=== PATIENT | female | born 1950 | race Caucasian/White ===

== ENCOUNTER 2022-10-25 08:00 | Outpatient (CLI) | payer MEDICARE ==
--- NOTE | 2022-10-26 08:35 | XRAY Report ---
PROCEDURE: Elbow 3 View LT INDICATIONS: LEFT ELBOW PAIN TECHNIQUE: 4 views of the elbow were acquired. COMPARISON: None. FINDINGS: Bones: No acute fractures or dislocations. No suspicious bony lesions. Extensive postsurgical thompson es with ORIF of distal humeral fracture, proximal ulnar fracture and radial head fracture. 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 Soft tissues: No effusion. No suspicious soft tissue calcifications or masses. IMPRESSION: 1. Ynutsomw-zq-[id number] osteoarthritis. 2. Postsurgical changes. Reviewed by: Radha Castillo MD on 10/26/2022 8:34 AM PDT Approved by: Radha Castillo MD on 10/26/2022 8:34 AM PDT Station ID: [id number]
== END 2022-10-25 23:59 | disposition home or self-care (01) ==
LOC: DI.S 08:00
PROVIDERS: ATTEND Physician Assistant Medical
DX: M19.022 Primary osteoarthritis, left elbow (principal)

== ENCOUNTER 2023-05-10 08:00 | Outpatient (CLI) | payer MEDICARE ==
--- NOTE | 2023-05-10 10:47 | XRAY Report ---
PROCEDURE: Chest 2 View X-Ray INDICATIONS: UPPER RESPIRATORY INFECTION TECHNIQUE: 2 views of the chest were acquired. COMPARISON: None. FINDINGS: Surgical changes and devices: None. Lungs and pleura: Near complete white out of the right lower lobe with large 6.6 bleb projecting ove r the left upper lobe. No pneumothorax. Mediastinum: Mediastinal contours appear normal. Heart size is normal. Bones and chest wall: No suspicious bony lesions. Overlying soft tissues appear unremarkable. Wed ge compression of the lower thoracic spine with bone cement suggestive prior treatment. IMPRESSION: Near complete whiteout of the right lower lobe likely reflects effusion. Lucency in the left upper lobe may represent large pulmonic cyst versus blood and less likely a cavit roly lesion. Given the differential for near complete whiteout of the lung consider CT imaging. Reviewed by: Damien Parmar MD on 05/10/2023 9:45 AM [facility] Approved by: Damien Parmar MD on 05/10/2023 9:45 AM [facility] Station ID: [id number]
== END 2023-05-10 23:59 | disposition home or self-care (01) ==
LOC: DI.S 08:00
PROVIDERS: ATTEND Physician Assistant
DX: J06.9 Acute upper respiratory infection, unspecified (principal); R91.8 Other nonspecific abnormal finding of lung field

== ENCOUNTER 2023-05-23 09:17 | Outpatient (CLI) | payer MEDICARE ==
--- NOTE | 2023-05-23 11:13 | XRAY Report ---
PROCEDURE: Chest 2 View X-Ray INDICATIONS: PLEURAL EFFUSION TECHNIQUE: 2 views of the chest were acquired. COMPARISON: Chest x-ray 05/10/2023. FINDINGS: Surgical changes and devices: None. Lungs and pleura: Significantly decreased size of right pleural effusion. Small residual right pleur al fluid. Mild right basilar opacity, may represent atelectasis. Redemonstration of right upper lung lucency. Mediastinum: Mediastinal contours appear normal. Heart size is normal. Bones and chest wall: No suspicious bony lesions. Overlying soft tissues appear unremarkable. IMPRESSION: 1.Significant decreased size of right pleural effusion with trace residual fluid. Right basilar opaci ty may represent atelectasis or consolidation. 2.Redemonstration right upper lobe lucency measuring approximately 7 cm, may represent pulmonic cysts . CT scan can be obtained for further evaluation. Reviewed by: Rinku Driscoll MD on 05/23/2023 11:12 AM PST Approved by: Rinku Driscoll MD on 05/23/2023 11:12 AM PST Station ID: [id number]
== END 2023-05-23 09:18 | disposition home or self-care (01) ==
LOC: DI.S 09:17
DX: J90 Pleural effusion, not elsewhere classified (principal); Z98.890 Other specified postprocedural states; R91.8 Other nonspecific abnormal finding of lung field

== ENCOUNTER 2023-06-18 17:41 | Outpatient (CLI) | payer MEDICARE | END 2023-06-18 17:42 | disposition short-term general hospital (02) | LOC: EMS 17:41 | DX: R07.9 Chest pain, unspecified (principal); R11.2 Nausea with vomiting, unspecified; R19.7 Diarrhea, unspecified; R42 Dizziness and giddiness; R53.1 Weakness | CPT/HCPCS: A0425; A0427 ==

== ENCOUNTER 2023-07-12 12:08 | Outpatient (CLI) | payer MEDICARE | END 2023-07-12 12:09 | disposition critical access hospital (66) | LOC: EMS 12:08 | DX: R07.89 Other chest pain (principal); R10.10 Upper abdominal pain, unspecified; R11.2 Nausea with vomiting, unspecified | CPT/HCPCS: A0425; A0427 ==

== ENCOUNTER 2023-07-12 12:38 | Emergency (ER) | payer MEDICARE ==
[2023-07-12 12:55] VITALS: O2SAT 98
[2023-07-12] MEDS: fentaNYL 100 MCG/2 ML VIAL IVP STA ×2 (13:01→15:11)
[2023-07-12] MEDS: ONDANSETRON 4 MG/2 ML VIAL IVP STA (13:01)
[2023-07-12] MEDS: SODIUM CHLORIDE 0.9% 1,000 ML IV STA ×2 (13:02→14:54)
[2023-07-12 13:04] LABS: BASOPHILS % (AUTO) 0.1 %; HCT - HEMATOCRIT 44.2 % (37.0-47.0); HGB - HEMOGLOBIN 13.4 g/dL (12.0-16.0); LYMPHOCYTES % (AUTO) 10.3 %; MEAN CORPUSCULAR HEMOGLOBIN 23.3 pg (27.0-31.0); MEAN CORPUSCULAR HGB CONC 30.3 g/dL (32.0-36.0); MEAN PLATELET VOLUME 8.8 fL (7.9-10.8); MONOCYTES # (AUTO) 0.5 10^3/uL (0.0-1.0); MONOCYTES % (AUTO) 5.3 %; NEUTROPHILS % (AUTO) 84.1 %; PLT - PLATELET COUNT 347 10^3/uL (130-450); RED BLOOD COUNT 5.74 10^6/uL (4.20-5.40); WHITE BLOOD COUNT 9.5 x10^3/uL (4.8-10.8)
[2023-07-12 13:20] LABS: ALBUMIN 4.4 g/dL (3.2-5.5); ALBUMIN/GLOBULIN RATIO 1.3 (1.0-2.2); ALKALINE PHOSPHATASE 52 IU/L (42-121); ALT ALANINE AMINOTRANSFERASE 25 IU/L (10-60); AST ASPARTATE AMINOTRANSFERASE 17 IU/L (10-42); BILIRUBIN,TOTAL 0.5 mg/dL (0.2-1.0); BUN - BLOOD UREA NITROGEN 36 mg/dL (6-20); CALCIUM 10.6 mg/dL (8.5-10.3); CARBON DIOXIDE - CO2 25 mmol/L (21-32); CHLORIDE 104 mmol/L (101-111); CREATININE 0.6 mg/dL (0.6-1.3); GFR - MDRD 98 (>89); GLUCOSE 168 mg/dL (74-104); LIPASE < 10 U/L (11-82); POTASSIUM 3.9 mmol/L (3.5-4.5); SODIUM 137 mmol/L (135-145); TOTAL PROTEIN 7.7 g/dL (6.4-8.9)
[2023-07-12] MEDS ORDERED: iohexoL-300 100 ML VIAL ONE (13:22)
--- NOTE | 2023-07-12 13:58 | ED Physician Documentation ---
History of Present Illness - Stated complaint Stated Complaint: N/V - Chief complaint Chief Complaint: Abd Pain - History obtained from History obtained from: Patient, EMS - History of Present Illness Timing: Yesterday Pain level max: 7 Pain level now: 7 - Additonal information Additional information: 72-year-old female presents to the emergency department with nausea and vomiting since yesterday. History of hiatal hernia repair in April 2023 at [facility]. She states that she is concerned that she may have of damaged the surgical repair or potentially perforated her esophagus. She is having some chest discomfort, states she mainly feels sore from vomiting. No fevers. No chills. No diarrhea. No constipation. No changes to her medications. No recent travel or antibiotics. Review of Systems Constitutional: denies: Chills GI: reports: Nausea, Vomiting. denies: Hematemesis, Bloody / black stool : denies: Dysuria Skin: denies: Rash Musculoskeletal: denies: Neck pain, Back pain Neurologic: denies: Headache PD PAST MEDICAL HISTORY - Past Medical History Past Medical History: Yes Cardiovascular: None Respiratory: None Neuro: None Endocrine/Autoimmune: HyPOthyroidism GI: GERD, GI bleed DIORAMIST: None : None HEENT: None Psych: Depression, Anxiety Musculoskeletal: None Derm: None Other Past Medical History: Diaphramatic hernia repair 2022 - Past Surgical History Past Surgical History: Yes General: Other Ortho: Arthroscopic surgery HEENT: Tonsil/Adenoidectomy - Present Medications Home Medications: Ambulatory Orders Medication Instructions Recorded Confirmed Calcium Carbonate [Calcium] 1 tab PO DAILY 07/12/23 07/12/23 Cholecalciferol [Vitamin D3] 1 cap PO DAILY 07/12/23 07/12/23 HYDROcod/ACETAM 5/325 [[place] 5/325] 1 - 2 ea PO Q6H PRN #10 tablet 07/12/23 Levothyroxine [Synthroid] 50 mcg PO QDAC 07/12/23 07/12/23 Lisinopril [Zestril] 1 tab PO DAILY 07/12/23 07/12/23 Promethazine [Phenergan] 25 mg PO Q6H PRN #10 tab 07/12/23 Venlafaxine [Effexor] 1 tab PO DAILY 07/12/23 07/12/23 busPIRone [Buspar] 1 tab PO DAILY 07/12/23 07/12/23 - Allergies Allergies/Adverse Reactions: Allergies Allergy/AdvReac Type Severity Reaction Status Date / Time No Known Drug Allergies Allergy Verified 07/12/23 12:51 - Social History Does the pt smoke?: No Smoking Status: Never smoker Does the pt drink ETOH?: No Does the pt have substance abuse?: No - Immunizations Immunizations are current?: Yes - POLST Patient has POLST: Yes PD ED PE NORMAL - Vitals Vital signs reviewed: Yes - General General: Alert and oriented X 3, No acute distress - HEENT HEENT: PERRL, Moist mucous membranes - Neck Neck: Supple, no meningeal sign - Cardiac Cardiac: RRR, Strong equal pulses - Respiratory Respiratory: No respiratory distress, Clear bilaterally - Abdomen Abdomen: Soft, Non tender, Non distended - Derm Derm: Warm and dry - Neuro Neuro: Alert and oriented X 3 - Psych Psych: Normal mood, Normal affect Results - Vitals Vitals: Vital Signs - 24 hr 07/12/23 07/12/23 07/12/23 12:38 14:40 15:41 Temperature 36.9 C Heart Rate 92 86 82 Respiratory 16 16 16 Rate Blood Pressure 166/93 H 163/101 H 164/86 H O2 Saturation 98 98 98 Oxygen O2 Source Room air - Labs Labs: Laboratory Tests 07/12/23 07/12/23 07/12/23 12:53 12:53 14:15 WBC 9.5 RBC 5.74 H Hgb 13.4 Hct 44.2 MCV 77.0 L MCH 23.3 L MCHC 30.3 L RDW 20.0 H Plt Count 347 MPV 8.8 Neut # (Auto) 8.0 H Lymph # (Auto) 1.0 L [place] # (Auto) 0.5 Eos # (Auto) 0.0 Baso # (Auto) 0.0 Absolute Nucleated RBC 0.00 Nucleated RBC % 0.0 Sodium 137 Potassium 3.9 Chloride 104 Carbon Dioxide 25 Anion Gap 8.0 BUN 36 H Creatinine 0.6 Estimated GFR (MDRD) 98 Glucose 168 H Calcium 10.6 H Total Bilirubin 0.5 AST 17 ALT 25 Alkaline Phosphatase 52 Total Protein 7.7 Albumin 4.4 Globulin 3.3 Albumin/Globulin Ratio 1.3 Lipase < 10 L Urine Color YELLOW Urine Clarity CLEAR Urine pH 6.0 Ur Specific [place] 1.015 Urine Protein TRACE Urine Glucose (UA) NEGATIVE Urine Ketones NEGATIVE Urine Occult Blood NEGATIVE Urine Nitrite NEGATIVE Urine Bilirubin NEGATIVE Urine Urobilinogen 0.2 (NORMAL) Ur Leukocyte Esterase NEGATIVE Ur Microscopic Review NOT INDICATED Urine Culture Comments NOT INDICATED - Rads (name of study) CT chest Relevant Findings:: Final report received, See rad report CT abdomen pelvis Relevant Findings:: Final report received, See rad report PD Medical Decision Making - ED course Complexity details: reviewed results, re-evaluated patient, considered differential, d/w patient ED course: Patient was given IV fluids, Zofran, Phenergan. Also given fentanyl. Pain well-controlled. No significant laboratory abnormalities other than elevated BUN to creatinine ratio suggesting dehydration. She is very well-appearing, nontoxic. Afebrile. Abdomen is soft, nontender nondistended on serial exam. Resting comfortably in the emergency department. Tolerating p.o. without difficulty. No evidence of bowel obstruction, colitis or diverticulitis. Possible enteritis? We will have her follow-up with her PCP for further care. Patient counseled regarding signs and symptoms for which I believe and urgent re-evaluation would be necessary. Patient with good understanding of and agreement to plan and is comfortable going home at this time This document was made in part using voice recognition software. While efforts are made to proofread this document, sound alike and grammatical errors may occur. Discussed the abnormal CT findings with the patient and she will follow-up with her doctor. Departure - Departure Disposition: 01 Home, Self Care Clinical Impression: Vomiting Qualifiers: Vomiting type: unspecified Nausea presence: with nausea Qualified Code(s): R11.2 - Nausea with vomiting, unspecified Abdominal pain Qualifiers: Abdominal location: generalized Qualified Code(s): R10.84 - Generalized abdominal pain Condition: Good Instructions: ED Nausea Vomiting Follow-Up: your,doctor in 1 week [Other] Prescriptions: HYDROcod/ACETAM 5/325 [[place] 5/325] 1 - 2 ea PO Q6H PRN #10 tablet PRN Reason: Pain Promethazine [Phenergan] 25 mg PO Q6H PRN #10 tab PRN Reason: Nausea / Vomiting Comments: Your prescriptions were sent to [facility] in [place]. Please drink plenty of fluids at home. This should improve on its own over the next few days. You can use the Zofran that you have at home or the Phenergan that was prescribed as n eeded for nausea and vomiting. You can use the hydrocodone as needed for pain. You do have a pulmonary nodule and an adrenal nodule on your CT scans, these can be followed up with your doctor. Your CT scan readings are below. I am prescribing a short course of narcotic pain medication for you. These are potentially dangerous and addictive medications that should be used carefully. These medications may constipate you. Take an qoxf-rmt-xtmzmyk stool softener (docusate) twice daily with plenty of water while taking these medications. If you go 24 hours without a bowel movement, take dutl-gid-hduquxk miralax, per package instructions. Do not drink or drive while taking these medications. If you received narcotic or sedating medications while in the emergency department, do not drive for 24 hours. Store this medication in a safe, secure place and out of reach of children. It is a violation of federal law to give or sell this medication to another person or to use in a manner other than prescribed. The ED will not refill narcotic prescriptions, including prescriptions lost or stolen. To dispose of unwanted medications: 1. [facility] [address] in [place] has a medication drop box. They accept prescription medications (in pill form) Friday through Friday 9:00 a.m. to 5:00 p.m. 2. [facility] [employer] accepts prescription medications (in pill form only) for disposal year round. Call for more information. 3. Contact the [facility] for the next [facility] sponsored prescription drug collection event. , [phone], or [phone]; PROCEDURE: CT chest with contrast INDICATIONS: chest/abd pain, n/v, hiatal hernia repair 04/24 TECHNIQUE: Helical axial CT of the chest was obtained after an intravenous contrast injection and reformatted in multiple planes. Radiation dose reduction was achieved using automated exposure control, adjustment of mA and/or kV according to patient size. COMPARISON: None FINDINGS: Lungs and pleura: Lungs and incidental right upper lobe pneumatocele measures 5.5 cm. A small right middle lobe 4 mm nodule associated with the minor fissure. Additional left lower lobe 1.2 cm pn eumatocele Pleural spaces are clear without pulmonary infiltrate, pneumothorax or pleural effusion. Mediastinum: Heart size is normal. No pericardial effusion. No large vessel abnormality. No mediastinal adenopathy by size criteria. Recent fundoplication noted with edema in the distal esophagus and associated gastric fundus. No recurrent hiatal hernia present however. No abscess or evidence of obstruction. Chest wall and lower neck: Thyroid is unremarkable. No axillary or supraclavicular adenopathy by size. Bones: No aggressive osseous abnormality. Upper Abdomen: Hepatic parenchyma is diffusely decreased in attenuation without focal mass lesion.. 1.7 cm left adrenal nodule IMPRESSION: Recent fundoplication as discussed in CT abdomen and pelvis report. Please refer to that report. Large right upper lobe benign pneumatocele and small right middle lobe 4 mm pulmonary nodule. Consider one-year follow-up Left adrenal 1.7 cm nodule, possible adenoma PROCEDURE: CT abdomen pelvis with contrast INDICATIONS: chest/abd pain, n/v, hiatal hernia repair 04/24, TECHNIQUE: Helical axial CT of the abdomen and pelvis was obtained after intravenous contrast administration and reformatted in multiple planes. Radiation dose reduction was achieved using automated exposure control or adjustment of mA and/or kV according to patient size. COMPARISON: None FINDINGS: Lower thorax: The lung bases are clear. Heart size normal. Fundoplication changes noted with persistent edema in the distal esophagus and gastric fundus. No evidence of abscess. Liver: Hepatic parenchyma is diffusely decreased in attenuation without focal mass lesion. Biliary system: No calcified cholelithiasis or pericholecystic inflammation. No evidence of bile duct dilatation. Pancreas: Unremarkable without mass or inflammation evident. Spleen: Normal in size and density. Adrenals: Normal morphology and density. Reproductive system: Unremarkable as visualized. Urinary system: Normal renal size and attenuation. No renal calculi, hydronephrosis, or solid mass present. Urinary bladder unremarkable. Gastrointestinal system: As above. No obstruction. Multiple diverticula arise from the sigmoid colon without evidence of diverticulitis. Appendix: No findings to suggest acute appendicitis. Peritoneal spaces: No mesenteric or retroperitoneal adenopathy. No free air. No free fluid. Vasculature: The IVC, aorta and iliac vasculature are unremarkable. Abdominal wall: Abdominal wall is intact without evidence of ventral or inguinal hernias. Musculoskeletal: L1 wedge-shaped compression fracture appears chronic IMPRESSION: Recent fundoplication with postoperative edema in the gastric fundus and distal esophagus. No evidence of obstruction or abscess Forms: PCP List Discharge Date/Time: 07/12/23 16:15
--- NOTE | 2023-07-12 14:08 | CT Report ---
PROCEDURE: CT abdomen pelvis with contrast INDICATIONS: chest/abd pain, n/v, hiatal hernia repair 04/24, TECHNIQUE: Helical axial CT of the abdomen and pelvis was obtained after intravenous contrast adminis tration and reformatted in multiple planes. Radiation dose reduction was achieved using automated exp osure control or adjustment of mA and/or kV according to patient size. COMPARISON: None FINDINGS: Lower thorax: The lung bases are clear. Heart size normal. Fundoplication changes noted with persist ent edema in the distal esophagus and gastric fundus. No evidence of abscess. Liver: Hepatic parenchyma is diffusely decreased in attenuation without focal mass lesion. Biliary system: No calcified cholelithiasis or pericholecystic inflammation. No evidence of bile du ct dilatation. Pancreas: Unremarkable without mass or inflammation evident. Spleen: Normal in size and density. Adrenals: Normal morphology and density. Reproductive system: Unremarkable as visualized. Urinary system: Normal renal size and attenuation. No renal calculi, hydronephrosis, or solid mass p resent. Urinary bladder unremarkable. Gastrointestinal system: As above. No obstruction. Multiple diverticula arise from the sigmoid colon without evidence of diverticulitis. Appendix: No findings to suggest acute appendicitis. Peritoneal spaces: No mesenteric or retroperitoneal adenopathy. No free air. No free fluid. Vasculature: The IVC, aorta and iliac vasculature are unremarkable. Abdominal wall: Abdominal wall is intact without evidence of ventral or inguinal hernias. Musculoskeletal: L1 wedge-shaped compression fracture appears chronic IMPRESSION: Recent fundoplication with postoperative edema in the gastric fundus and distal esophagus. No evidenc e of obstruction or abscess Reviewed by: Subhash Junior MD on 07/12/2023 1:06 PM [facility] Approved by: Subhash Junior MD on 07/12/2023 1:06 PM [place] Station ID: [id number]
--- NOTE | 2023-07-12 14:17 | CT Report ---
PROCEDURE: CT chest with contrast INDICATIONS: chest/abd pain, n/v, hiatal hernia repair 04/24 TECHNIQUE: Helical axial CT of the chest was obtained after an intravenous contrast injection and ref ormatted in multiple planes. Radiation dose reduction was achieved using automated exposure control, adjustment of mA and/or kV according to patient size. COMPARISON: None FINDINGS: Lungs and pleura: Lungs and incidental right upper lobe pneumatocele measures 5.5 cm. A small right m iddle lobe 4 mm nodule associated with the minor fissure. Additional left lower lobe 1.2 cm pneumatoc evelyne Pleural spaces are clear without pulmonary infiltrate, pneumothorax or pleural effusion. Mediastinum: Heart size is normal. No pericardial effusion. No large vessel abnormality. No mediastin al adenopathy by size criteria. Recent fundoplication noted with edema in the distal esophagus and a ssociated gastric fundus. No recurrent hiatal hernia present however. No abscess or evidence of obstr uction. Chest wall and lower neck: Thyroid is unremarkable. No axillary or supraclavicular adenopathy by size . Bones: No aggressive osseous abnormality. Upper Abdomen: Hepatic parenchyma is diffusely decreased in attenuation without focal mass lesion.. 1 .7 cm left adrenal nodule IMPRESSION: Recent fundoplication as discussed in CT abdomen and pelvis report. Please refer to that report. Large right upper lobe benign pneumatocele and small right middle lobe 4 mm pulmonary nodule. Conside r one-year follow-up Left adrenal 1.7 cm nodule, possible adenoma Reviewed by: Subhash Junior MD on 07/12/2023 1:16 PM [place] Approved by: Subhash Junior MD on 07/12/2023 1:16 PM [facility] Station ID: [id number]
[2023-07-12 14:30] LABS: BILIRUBIN,URINE NEGATIVE (NEGATIVE); GLUCOSE, URINE (UA) NEGATIVE (NEGATIVE); KETONES,URINE (UA) NEGATIVE (NEGATIVE); LEUKOCYTE ESTERASE, URINE NEGATIVE (NEGATIVE); NITRITE,URINE NEGATIVE (NEGATIVE); OCCULT BLOOD,URINE NEGATIVE (NEGATIVE); PROTEIN,URINE TRACE mg/dL (NEGATIVE); UROBILINOGEN,URINE 0.2 (NORMAL) E.U./dL (NORMAL)
[2023-07-12 14:31] LABS: CLARITY,URINE CLEAR (CLEAR)
[2023-07-12] MEDS: PROMETHAZINE 25 MG/1 ML VIAL IM STA (14:50)
[2023-07-12 15:41] VITALS: BP 164/86
[2023-07-12] MEDS: iohexoL-300 100 ML VIAL IVP ONE (16:42)
== END 2023-07-12 16:15 | disposition home or self-care (01) ==
LOC: ED 12:38
DX: R11.2 Nausea with vomiting, unspecified (principal); R10.84 Generalized abdominal pain; E03.9 Hypothyroidism, unspecified; K21.9 Gastro-esophageal reflux disease without esophagitis; Z79.899 Other long term (current) drug therapy
CPT/HCPCS: 36415; 71260; 74177; 80053; 81003; 83690; 85025; 96372; 96374; 96376; 99284; Q9967; 81001; 87086

== ENCOUNTER 2023-07-22 08:48 | Outpatient (CLI) | payer MEDICARE ==
[2023-07-22 14:58] LABS: THYROID STIMULATING HORMONE 1.4 uIU/mL (0.34-5.60)
[2023-07-22 14:59] LABS: ALBUMIN 4.4 g/dL (3.2-5.5); ALBUMIN/GLOBULIN RATIO 1.3 (1.0-2.2); ALKALINE PHOSPHATASE 67 IU/L (42-121); ALT ALANINE AMINOTRANSFERASE 26 IU/L (10-60); AST ASPARTATE AMINOTRANSFERASE 23 IU/L (10-42); BILIRUBIN,TOTAL 0.4 mg/dL (0.2-1.0); BUN - BLOOD UREA NITROGEN 17 mg/dL (6-20); CALCIUM 10.6 mg/dL (8.5-10.3); CARBON DIOXIDE - CO2 31 mmol/L (21-32); CHLORIDE 100 mmol/L (101-111); CHOL/HDL RATIO 5.3 (<4.4); CHOLESTEROL 274 mg/dL; CREATININE 0.6 mg/dL (0.6-1.3); GFR - MDRD 98 (>89); GLUCOSE 96 mg/dL (74-104); HDL CHOLESTEROL 52 mg/dL; LDL CHOLESTEROL,CALCULATED 160 mg/dL; LDL CHOLESTEROL,DIRECT 172 mg/dL (75-193); LDL/HDL RATIO 3.1 (<4.4); POTASSIUM 4.3 mmol/L (3.5-4.5); SODIUM 136 mmol/L (135-145); TOTAL PROTEIN 7.7 g/dL (6.4-8.9); TRIGLYCERIDES 310 mg/dL (48-352); VLDL CHOLESTEROL 62 mg/dL
== END 2023-07-22 08:49 | disposition home or self-care (01) ==
LOC: LAB.S 08:48
PROVIDERS: ATTEND Nuclear Medicine Nuclear Cardiology
DX: M81.0 Age-related osteoporosis without current pathological fracture (principal); I10 Essential (primary) hypertension; E78.2 Mixed hyperlipidemia; E03.8 Other specified hypothyroidism
CPT/HCPCS: 36415; 80053; 80061; 82306; 83721; 84443